=== PATIENT | male | born 1955 | race Caucasian/White ===

== ENCOUNTER → 2018-07-25 | Outpatient (CLI) | payer OTHER ==
[2018-07-25 10:12] LABS: Anion Gap 8 mmol/L (6-16); Blood Urea Nitrogen 20 mg/dL (8-24); Bun/Creatinine Ratio 21.1 (12.0-20.0); CO2, Blood 28 mmol/L (21-32); Calcium, Blood 8.5 mg/dL (8.5-10.1); Chloride, Blood 104 mmol/L (98-108); Creatinine, Blood 0.95 mg/dL (0.60-1.20); Glomerular Filtration Rate >60 (60-); Glucose, Blood 100 mg/dL (70-99); Potassium, Blood 4.2 mmol/L (3.5-5.5); Sodium, Blood 140 mmol/L (136-145)
== END | disposition home or self-care (01) ==
LOC: LAB SHORT 10:02 → LAB EV 10:02
PROVIDERS: Physician Assistant Medical
DX: I10 Essential (primary) hypertension (principal)
CPT/HCPCS: 80048

== ENCOUNTER → 2018-11-26 | Outpatient (CLI) | payer OTHER ==
[2018-11-26 11:31] LABS: Anion Gap 4 mmol/L (6-16); Blood Urea Nitrogen 22 mg/dL (8-24); Bun/Creatinine Ratio 25.3 (12.0-20.0); CO2, Blood 29 mmol/L (21-32); Calcium, Blood 8.4 mg/dL (8.5-10.1); Chloride, Blood 112 mmol/L (98-108); Creatinine, Blood 0.87 mg/dL (0.60-1.20); Glomerular Filtration Rate >60 (60-); Glucose, Blood 92 mg/dL (70-99); Potassium, Blood 3.9 mmol/L (3.5-5.5); Sodium, Blood 145 mmol/L (136-145)
== END | disposition home or self-care (01) ==
LOC: LAB SHORT 11:13 → LAB 11:13
PROVIDERS: Physician Assistant
DX: I10 Essential (primary) hypertension (principal)
CPT/HCPCS: 80048

== ENCOUNTER → 2022-10-31 | Emergency (ER) | payer OTHER ==
[~2022-10-31] VITALS: Ht 185.4 cm; Wt 104.3 kg
[~2022-10-31] MED LIST: CEPH500 PO; OXYC5 PO
[2022-10-31 14:13] LABS: Source, Urine Foley catheter
[2022-10-31 14:24] VITALS: BP 148/86
[2022-10-31 14:29] LABS: Appearance, Urine Turbid (Clear); Bilirubin, Urine Neg (Neg); Blood, Urine 5+ (Neg); Color, Urine Brown (P-Yellow); Glucose Qualitative, Urine Neg (Neg); Ketones, Urine 1+ (Neg); Leukocyte Esterase, Urine 2+ (Neg); Nitrite, Urine Pos (Neg); Protein, Urine 4+ (Neg); Specific Gravity, Urine 1.025 (1.003-1.022); Urobilinogen, Urine 1+ (Normal)
[2022-10-31 14:29] LABS: BASOPHILS ABSOLUTE AUTO 0.03 K/mm3 (0.00-0.23); BASOPHILS PERCENT AUTO 0 % (0-2); EOSINOPHILS PERCENT AUTO 2 % (0-6); Hematocrit 45.2 % (37.0-53.0); Hemoglobin 15.5 g/dL (13.5-17.5); IMMATURE GRAN ABSOLUTE AUTO 0.01 K/mm3 (0.00-0.10); IMMATURE GRAN PERCENT AUTO 0 % (0-1); LYMPHOCYTES ABSOLUTE AUTO 1.72 K/mm3 (0.84-5.20); LYMPHOCYTES PERCENT AUTO 20 % (21-46); MONOCYTES ABSOLUTE AUTO 0.66 K/mm3 (0.16-1.47); MONOCYTES PERCENT AUTO 8 % (4-13); Mean Corpuscular HGB 29.1 pg (26.0-34.0); Mean Corpuscular HGB Conc 34.3 g/dL (31.5-36.5); Mean Corpuscular Volume 85 fL (80-100); Mean Platelet Volume 10.5 fL (9.1-12.4); NEUTROPHILS ABSOLUTE AUTO 6.01 K/mm3 (1.96-9.15); NEUTROPHILS PERCENT AUTO 70 % (41-73); Platelet Count 220 K/mm3 (150-400); RDW Coefficient Variation 12.9 % (11.7-14.2); Red Blood Cell Count 5.32 M/mm3 (4.30-5.90); White Blood Cell Count 8.63 K/mm3 (4.00-11.30)
[2022-10-31 14:31] LABS: Albumin, Blood 3.9 g/dL (3.4-5.0); Albumin/Globulin Ratio 0.8 (0.8-1.8); Bilirubin, Total 0.6 mg/dL (0.1-1.0); Bun/Creatinine Ratio 26.6 (12.0-20.0); Calcium, Blood 9.5 mg/dL (8.5-10.1); Creatinine, Blood 0.83 mg/dL (0.60-1.20); Globulin, Blood 4.9 g/dL (2.2-4.0); Potassium, Blood 3.9 mmol/L (3.5-5.5); Total Protein, Blood 8.8 g/dL (6.4-8.2)
[2022-10-31 14:54] LABS: Amorphous Light (0-Heavy); Bacteria Many /hpf; Mucus Mod (0-Heavy); Red Blood Cells, Urine TNTC /hpf (0-2); Squamous Epithelial Cells Rare /hpf (Few); Transitional Epithelial Cells Few /hpf (0-Rare); White Blood Cells, Urine 25-50 /hpf (0-5)
== END ==
LOC: ER 11:24
PROVIDERS: Emergency Medicine; Student in an Organized Health Care Education/Training Program
DX: T83.511A Infection and inflammatory reaction due to indwelling urethral catheter, initial encounter (principal); N30.90 Cystitis, unspecified without hematuria; Y73.8 Miscellaneous gastroenterology and urology devices associated with adverse incidents, not elsewhere classified
CPT/HCPCS: 80053; 81001; 83605; 85025; 96374; 99283-25; J0696

== ENCOUNTER 2024-08-07 08:21 | Day surgery (SDC) | payer OTHER ==
[2024-08-07] VITALS (13 sets, daily range): BP systolic 109–145; BP diastolic 64–94
[~2024-08-07] VITALS: Ht 175.3 cm; Wt 96.5 kg
[~2024-08-07 08:21] MED LIST changes: +AMLO10 PO; +ASPI81CH PO; +ATOR20 PO; +CeFAZolin Sodium 2,000 MG in NS 100 ML IV SCH; +Chlorhexidine Mouth Care 15 ML UDC MT SCH; +LISI20 PO; +Lactated Ringer's 1,000 ML IV SCH; +MELA3 PO; +Norvasc2.5 MG PO; +OxyCODONE HCL 10 MG TABCR PO SCH; +Ropivacaine 0.5% HCl/Pf 123.125 MG,EPINEPHrine HCL 0.25 MG,Ketorolac Tromethamine 15 MG... INFIL SCH; +Tranexamic Acid 100 ML IV SCH; +Vancomycin HCL 1,000 MG in NS 250 ML IV SCH
[2024-08-07] MEDS ORDERED: CeFAZolin Sodium 2,000 MG VIAL ONE (08:40)
[2024-08-07] MEDS ORDERED: propofoL 20 ML IV ONE (08:40)
[2024-08-07] MEDS ORDERED: ACET500 PO (09:39)
--- NOTE | 2024-08-07 09:43 | NUR ---
BROUGHT INTO [facility] VIA W/C. Ambulatory in Day Surgery SHORT DISTANCE W/CANE Patient confirms NPO status and agrees with scheduled surgery. Pre-Op teaching done. Pt verbalizes understanding. History, Chart, Medications and Allergies reviewed before start of procedure. Patient reports completing Chlorhexadine shower X2 prior to admission to hospital.Patient States Post-Procedure ride home has been arranged.
[2024-08-07] MEDS ORDERED: Acetaminophen 500 MG Tab PO SCH ×2 (09:55→16:00)
[2024-08-07] MEDS ORDERED: OxyCODONE HCL 5 MG TAB PO PRN ×2 (10:30)
[2024-08-07] MEDS ORDERED: Promethazine HCl 25 MG Tab PO PRN (10:30)
[2024-08-07] MEDS ORDERED: Ondansetron HCl 2 MG / ML 2ML Vial IV PRN ×2 (10:30→12:00)
[2024-08-07] MEDS ORDERED: Lactated Ringer's 1,000 ML IV SCH (10:30)
[2024-08-07] MEDS ORDERED: DiphenhydrAMINE HCL 25 MG Cap PO PRN (10:35)
[2024-08-07] MEDS ORDERED: Metoclopramide HCl 5MG / ML 2ML Vial IV PRN ×2 (10:35→11:55)
[2024-08-07] MEDS ORDERED: Magnesium Hydroxide Conc 10 ML UDC PO PRN (10:35)
[2024-08-07] MEDS ORDERED: FLU VACC TS2024-25(6MOS UP)/PF 45 MCG/0.5 ML SYRINGE IM PRN (10:35)
[2024-08-07] MEDS ORDERED: HYDROmorphone HCl/Pf 1MG SYR IV PRN ×2 (10:35→11:55)
[2024-08-07] MEDS ORDERED: Bisacodyl 10 MG Supp PR PRN (10:40)
[2024-08-07] MEDS ORDERED: Melatonin 3 MG Tab PO PRN (10:40)
[2024-08-07] MEDS ORDERED: propofoL 150 ML IV ONE (10:44)
[2024-08-07] MEDS ORDERED: Midazolam HCl 1MG / ML 2ML Vial ONE (10:44)
[2024-08-07] MEDS ORDERED: Midazolam HCl 1MG / ML 2ML Vial IV ONE (10:45)
[2024-08-07] MEDS ORDERED: Ondansetron HCl 2 MG / ML 2ML Vial ONE (11:22)
[2024-08-07] MEDS ORDERED: Dexamethasone Sod Phos 10 MG/ML 1ML VIAL ONE (11:22)
[2024-08-07] MEDS ORDERED: Vancomycin HCl 1000 MG ADDvantage ONE (11:39)
[2024-08-07] MEDS ORDERED: FentaNYL Citrate 50 MCG/ML 2 ML Injection IV PRN ×2 (11:50→11:55)
[2024-08-07] MEDS ORDERED: HydrALAZINE HCl 20 MG / ML 1ML Vial IV PRN (11:55)
[2024-08-07] MEDS ORDERED: Prochlorperazine Edisylate 10 mg Vial IV PRN (11:55)
[2024-08-07] MEDS ORDERED: Albuterol 2.5 MG/3 ML VIAL INH PRN (12:00)
[2024-08-07] MEDS ORDERED: Morphine Sulfate 4 MG/1 ML Injection IV PRN (12:00)
--- NOTE | 2024-08-07 17:56 | NUR ---
POST-OP PATIENT TO ROOM @ 1415 VITALS SIGNS STABLE, DRESSING IS TELFA, TEGADERM AND INDIGO WRAP, C/D/I. HAS SENSATION TO BILAT LE, STILL REPORTS NUMBNESS TO BOTTOM OF R FOOT. PATIENT BLADDER SCANNED AND UP TO VOID @ 1750. SBA, GB, FWW. REPORTS FEELING "STABLE ON THE NEW LEG". DENIES PAIN, DENIES NAUSEA. SPINAL BLOCK SITE IS WNL. PATIENT IN THE CHAIR FOR DINNER. CALL LIGHT IN REACH.
[2024-08-07] MEDS ORDERED: Lisinopril 20 MG Tab PO SCH (18:00)
[2024-08-07] MEDS ORDERED: Ketorolac Tromethamine 15mg Vial IV SCH (18:00)
[2024-08-07] MEDS ORDERED: AmLODIPine Besylate 5 MG Tab PO SCH (18:00)
[2024-08-07] MEDS ORDERED: CeFAZolin Sodium 2,000 MG in NS 100 ML IV SCH (19:00)
[2024-08-07] MEDS ORDERED: Docusate Sodium 100 MG Cap PO SCH (21:00)
[2024-08-07] MEDS ORDERED: Vancomycin HCL 1,000 MG in NS 250 ML IV ONE (22:00)
[2024-08-08 04:15] VITALS: BP 136/87
[2024-08-08 05:12] LABS: BASOPHILS ABSOLUTE AUTO 0.01 K/mm3 (0.00-0.23); BASOPHILS PERCENT AUTO 0 % (0-2); EOSINOPHILS PERCENT AUTO 0 % (0-6); Hematocrit 41.5 % (37.0-53.0); Hemoglobin 14.3 g/dL (13.5-17.5); IMMATURE GRAN ABSOLUTE AUTO 0.03 K/mm3 (0.00-0.10); IMMATURE GRAN PERCENT AUTO 0 % (0-1); LYMPHOCYTES ABSOLUTE AUTO 1.07 K/mm3 (0.84-5.20); LYMPHOCYTES PERCENT AUTO 8 % (21-46); MONOCYTES ABSOLUTE AUTO 0.58 K/mm3 (0.16-1.47); MONOCYTES PERCENT AUTO 5 % (4-13); Mean Corpuscular HGB 28.8 pg (26.0-34.0); Mean Corpuscular HGB Conc 34.5 g/dL (31.5-36.5); Mean Corpuscular Volume 84 fL (80-100); Mean Platelet Volume 10.7 fL (9.1-12.4); NEUTROPHILS ABSOLUTE AUTO 11.09 K/mm3 (1.96-9.15); NEUTROPHILS PERCENT AUTO 87 % (41-73); Platelet Count 199 K/mm3 (150-400); RDW Coefficient Variation 12.7 % (11.7-14.2); RDW Standard Deviation 37.9 fL (35.1-46.3); Red Blood Cell Count 4.97 M/mm3 (4.30-5.90); White Blood Cell Count 12.78 K/mm3 (4.00-11.30)
[2024-08-08 05:34] LABS: Bun/Creatinine Ratio 30.7 (12.0-20.0); Calcium, Blood 8.1 mg/dL (8.5-10.1); Creatinine, Blood 0.72 mg/dL (0.60-1.20); Magnesium, Blood 2.1 mg/dL (1.6-2.4); Potassium, Blood 3.9 mmol/L (3.5-5.5)
--- NOTE | 2024-08-08 05:57 | NUR ---
NOC SUMMARY- PT VOIDING AND AMBULATING. PT TOLERATIONG PO INTAKE. PAIN MANAGED WELL PER JUL. PT DRESSING IS C/D/I. PT CURRENTLY RESTING QUIETLY IN CHAIR. CALL LIGHT IN REACH.
--- NOTE | 2024-08-08 07:31 | NUR ---
AM ASSESSMENT PT POD 1 R TKA. A/O X'S 4, LUNGS CLEAR T/O. INIDGO WRAP TO R KNEE C/D/I, POLAR PACK, MARISSA HOSE, PAS'S IN PLACE. REPORTS FULL SENSATION TO BLE. REPORTS PAIN 1/10 GENERALIZED TO BLE. PT MEDICATED AT TIME OF ASSESSMENT PER PT REQUEST PRIOR TO PT WORKING WITH HIM. PT UP TO CHAIR, REPORTS AMBULATING WITH ASSIST AND FWW. TOLERATING PO W/NO N/V, VOIDING W/O DIFFICULTY. PT EDUCATED ON HOURLY ROUNDING AND CALLING FOR ASSISTANCE GETTING UP AND TO THE BATHROOM. CALL LIGHT IN REACH.
[2024-08-08 07:39] VITALS: BP 133/85
[2024-08-08] MEDS ORDERED: Aspirin 81 MG Chew PO SCH (09:00)
[2024-08-08] MEDS ORDERED: Trimethoprim/Sulfamethoxazole DS Tab PO SCH (09:00)
[2024-08-08] MEDS ORDERED: Atorvastatin 10 MG Tab PO SCH (09:00)
[2024-08-08] MEDS ORDERED: OXAYDO5 M1 PO (09:24)
[2024-08-08] MEDS ORDERED: ONDA4 PO (09:25)
[2024-08-08] MEDS ORDERED: BACTRIM DS TAB1 EAC6 PO (09:25)
--- NOTE | 2024-08-08 09:53 | NUR ---
DISCHARGE PT DISCHARGED HOME FROM UNIT AT APROX 0950. PT GIVEN WRITTEN AND VERBAL DC INSTRUCTIONS AND VERBALIZED UNDERSTANDING. IV REMOVED, PT TOLERATED WELL. PT REPORTS THAT HE PICKED UP ALL OF HIS RX'S PRIOR TO SURGERY AND HAS THEM AT HOME WELL A FWW. WC TO PRIVATE VEHICLE, TX TO CAR EASILY.
== END 2024-08-08 09:43 | disposition home or self-care (01) ==
LOC: ORSCMMR 08:21 → ORD 14:00 → ORSCMMR 14:00 → SURS 14:36 → ORSCMMR 14:36 → SURS 08-08 09:43 → ORSCMMR 08-08 09:43
PROVIDERS: Orthopaedic Surgery
PROC: 0SRC0J9 Replacement of Right Knee Joint with Synthetic Substitute, Cemented, Open Approach (ICD-10-PCS; principal; 2024-08-07 10:45)
DX: M17.11 Unilateral primary osteoarthritis, right knee (principal); I10 Essential (primary) hypertension; E78.5 Hyperlipidemia, unspecified; E66.9 Obesity, unspecified; Z68.31 Body mass index [BMI] 31.0-31.9, adult; Z79.899 Other long term (current) drug therapy; Z79.82 Long term (current) use of aspirin
CPT/HCPCS: 36415; 73560-RT; 80048; 83735; 85025; 97110; 97116; 97161; 97530; A9270; C1713; C1776; J0171; J0690; J0735; J1100; J1885; J2250; J2405; J2704; J2795; J3370; J7050; J7120